=== PATIENT | male | born 1980 | race Caucasian/White ===

== ENCOUNTER 2018-01-15 13:09 | Emergency (ER) | payer MEDICAID ==
[2018-01-15 13:17] VITALS: BP 122/81
[2018-01-15] MEDS ORDERED: IPRATROPIUM/ALBUTEROL 0.5-2.5 MG/3 ML AMPUL NEB ONE ×2 (13:32→13:40)
[2018-01-15] MEDS ORDERED: IBUPROFEN 800 MG TABLET PO ONE (13:32)
[2018-01-15] MEDS ORDERED: PREDNISONE 20 MG TABLET PO ONE (13:32)
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
[2018-01-15] MEDS ORDERED: IBUPROFEN 800 MG TABLET ONE (13:40)
[2018-01-15] MEDS ORDERED: PREDNISONE 20 MG TABLET ONE (13:40)
[2018-01-15] MEDS ORDERED: ALBUTEROL SULFATE 0.083% NEB 2.5 MG/3 ML AMPUL NEB ONE (14:28)
--- NOTE | 2018-01-15 14:40 | RADIOLOGY REPORT (SQ) ---
EXAM DESCRIPTION: FOOT BILATERAL 3 VIEWS COMPLETED DATE/TIME: 01/15/2018 2:17 pm REASON FOR STUDY: bilat foot pain, after jumping up/down COMPARISON: None. NUMBER OF VIEWS: Six views. TECHNIQUE: AP, lateral and oblique radiographic images acquired of the right and left foot. LIMITATIONS: None. FINDINGS: MINERALIZATION: Normal. BONES: No acute fracture or dislocation. No worrisome bone lesions. JOINTS: No effusions. SOFT TISSUES: No soft tissue swelling. No foreign body. OTHER: No other significant finding. IMPRESSION: NEGATIVE STUDY OF THE RIGHT AND LEFT FEET. NO RADIOGRAPHIC EVIDENCE OF ACUTE INJURY. TECHNICAL DOCUMENTATION: JOB ID: [id number] [employer]- All Rights Reserved Reading location - IP/workstation name: [email or web address]
--- NOTE | 2018-01-15 14:41 | RADIOLOGY REPORT (SQ) ---
EXAM DESCRIPTION: CHEST 2 VIEWS COMPLETED DATE/TIME: 01/15/2018 2:17 pm REASON FOR STUDY: cough COMPARISON: None. EXAM PARAMETERS: NUMBER OF VIEWS: two views TECHNIQUE: Digital Frontal and Lateral radiographic views of the chest acquired. RADIATION DOSE: NA LIMITATIONS: none FINDINGS: LUNGS AND PLEURA: No opacities, masses or pneumothorax. No pleural effusion. MEDIASTINUM AND HILAR STRUCTURES: No masses or contour abnormalities. HEART AND VASCULAR STRUCTURES: Heart normal size. No evidence for failure. BONES: No acute findings. HARDWARE: None in the chest. OTHER: No other significant finding. IMPRESSION: NO ACUTE RADIOGRAPHIC FINDING IN THE CHEST. TECHNICAL DOCUMENTATION: JOB ID: [id number] [employer]- All Rights Reserved Reading location - IP/workstation name: [email or web address]
== END 2018-01-15 15:02 | disposition home or self-care (01) ==
LOC: ER 13:09
DX: J40 Bronchitis, not specified as acute or chronic (principal); R06.2 Wheezing; R05 Cough; S93.609A Unspecified sprain of unspecified foot, initial encounter; M79.671 Pain in right foot; M79.672 Pain in left foot; X58.XXXA Exposure to other specified factors, initial encounter; F17.200 Nicotine dependence, unspecified, uncomplicated
CPT/HCPCS: 94640 ×2; 99283; 71046; 73630; J3490; J7512; J7620

== ENCOUNTER 2018-02-28 23:53 | Emergency (ER) | payer MEDICAID ==
[2018-03-01 00:13] VITALS: BP 123/66
[2018-03-01] MEDS ORDERED: AMOXICILLIN TR/POT CLAVULANATE 500-125 MG TAB PO ONE (00:32)
--- NOTE | 2018-03-01 00:32 | ER Document Report ---
ED General - General Chief Complaint: Nasal Congestion Stated Complaint: CONGESTION Time Seen by Provider: 03/01/18 00:23 Notes: Patient is a pleasant 37-year-old male who presents with complaint of some nasal congestion and then noticing some purulent type drainage coming from his right nare. No cough. Subjective fevers at home. No vomiting. No difficulty swallowing or breathing. No other complaints at this time. He is a smoker. TRAVEL OUTSIDE OF THE [place] IN LAST 30 DAYS: No - Related Data Allergies/Adverse Reactions: hydrocodone Adverse Reaction (Intermediate, Verified 01/15/18 13:10) Past Medical History - Social History Smoking Status: Current Every Day Smoker Chew tobacco use (# tins/day): No Frequency of alcohol use: Rare Drug Abuse: None Family History: Reviewed & Not Pertinent Patient has suicidal ideation: No Patient has homicidal ideation: No Pulmonary Medical History: Reports: Hx Bronchitis Renal/ Medical History: Denies: Hx Peritoneal Dialysis Traumatic Medical History: Reports: Hx Fractures Past Surgical History: Reports: Hx Oral Surgery - Immunizations Hx Diphtheria, Pertussis, Tetanus Vaccination: Yes - 2009 Review of Systems - Review of Systems Notes: My Normal Review Basic REVIEW OF SYSTEMS: CONSTITUTIONAL : Denies fever, chills, or sweats. Denies recent illness. EENT: Abnormal drainage from nose. RESPIRATORY: Denies cough, cold, or chest congestion. Denies shortness of breath, difficulty breathing, or wheezing. GASTROINTESTINAL: Denies abdominal pain. Denies nausea, vomiting, or diarrhea. MUSCULOSKELETAL: Denies neck or back pain or joint pain or swelling. SKIN: Denies rash or skin lesions. NEUROLOGICAL: Denies altered mental status or loss of consciousness. ALL OTHER SYSTEMS REVIEWED AND NEGATIVE. Physical Exam - Vital signs Vitals: Temp Pulse Resp BP Pulse Ox 98.9 F 86 16 123/66 98 03/01/18 00:11 03/01/18 00:11 03/01/18 00:11 03/01/18 00:11 03/01/18 00:11 - Notes Notes: General Appearance: Well nourished, alert, cooperative, no acute distress, no obvious discomfort. Vitals: reviewed, See vital signs table. Head: no swelling or tenderness to the head Eyes: PERRL, EOMI, Conjuctiva clear Mouth: No decreasd moisture Throat: No tonsillar inflammation, No airway obstruction, No lymphadenopathy. No abnormal drainage coming from nose at this time. I do not see a intranasal abscess on visual examination. Neck: Supple, no neck tenderness, No swelling. No lymphadenopathy. Lungs: No wheezing, No rales, No rhonci, No accessory muscle use, good air exchange bilaterally. Heart: Normal rate, Regular rythm, No murmur, no rub Neuro: speech clear, oriented x 3, normal affect, responds appropriately to questions. Course - Re-evaluation Re-evalutation: 03/01/18 05:10 Patient describes the drainage was coming from his right nose is almost puslike or purulent. It is possible he had a small intranasal abscess that ruptured and then drained. I do not see one visual examination now. He does mention he has had some congestion with fever. Due to his recent history we will place him on Augmentin to cover for possible staph infection in the sinuses and possible intranasal infection. I encouraged him to follow-up with a physician in 4-5 days for reevaluation. I encourage him return to ER immediately if he has any difficulty breathing, fevers, or worsening of his symptoms. Patient agrees with plan will be discharged home. - Vital Signs Vital signs: Temp Pulse Resp BP Pulse Ox 98.9 F 84 16 123/66 99 03/01/18 00:12 03/01/18 00:12 03/01/18 00:12 03/01/18 00:12 03/01/18 00:12 Discharge - Discharge Clinical Impression: Sinusitis Qualifiers: Sinusitis location: unspecified location Chronicity: acute Recurrence: non- recurrent Qualified Code(s): J01.90 - Acute sinusitis, unspecified Condition: Good Disposition: HOME, SELF-CARE Additional Instructions: Please stop smoking. Please follow up with a doctor or the ER on Friday to make sure your symptoms are improving. Please return to the ER if you have recurrent fevers, vomiting, worsening nasal drainage, or feel unwell. Prescriptions: Amox Tr/Potassium Clavulanate [Augmentin 875-125 Tablet] 1 tab PO BID 10 Days tablet Referrals: OLEG HANCOCK DO [Primary Care Provider] - 03/02/18
== END 2018-03-01 00:47 | disposition home or self-care (01) ==
LOC: ER 23:53
DX: J01.90 Acute sinusitis, unspecified (principal); R09.81 Nasal congestion; R50.9 Fever, unspecified; F17.200 Nicotine dependence, unspecified, uncomplicated
CPT/HCPCS: 99283; J3490

== ENCOUNTER → 2018-04-27 | Outpatient (CLI) | payer MEDICAID ==
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
--- NOTE | 2018-04-27 13:15 | RADIOLOGY REPORT (SQ) ---
EXAM DESCRIPTION: LUMBAR SPINE COMPLETE COMPLETED DATE/TIME: 04/27/2018 1:03 pm REASON FOR STUDY: BILATERAL KNEE PAIN,LUMBAGO WITH SCIATICA, RIGHT SIDE M25.562 PAIN IN LEFT KNEE M 54.41 LUMBAGO WITH SCIATICA, RIGHT SIDE M25.561 PAIN IN RIGHT KNEE COMPARISON: None. NUMBER OF VIEWS: Five views including obliques. TECHNIQUE: AP, lateral, oblique, and sacral radiographic images acquired of the lumbar spine. LIMITATIONS: None. FINDINGS: MINERALIZATION: Normal. SEGMENTATION: Normal. No transitional anatomy. ALIGNMENT: Normal. VERTEBRAE: Maintained height. No fracture or worrisome bone lesion. DISCS: Preserved height. No significant osteophytes or end plate irregularity. POSTERIOR ELEMENTS: Spina bifida occulta S1. HARDWARE: None in the spine. PARASPINAL SOFT TISSUES: Normal. PELVIS: Intact as visualized. No fractures or worrisome bone lesions. SI joints intact. OTHER: No other significant finding. IMPRESSION: NORMAL 5 VIEW LUMBAR SPINE. TECHNICAL DOCUMENTATION: JOB ID: [id number] [employer] All Rights Reserved Reading location - IP/workstation name: [email or web address]
== END ==
LOC: OD 12:14
PROVIDERS: ATTEND Family Medicine
DX: M25.561 Pain in right knee (principal); M25.562 Pain in left knee; M54.41 Lumbago with sciatica, right side
CPT/HCPCS: 72110

== ENCOUNTER 2018-10-21 21:17 | Emergency (ER) | payer MEDICAID ==
[2018-10-21] MEDS ORDERED: DICYCLOMINE HCL INJ 20 MG/2 ML AMPULE IM ONE (23:00)
[2018-10-21] MEDS ORDERED: METOCLOPRAMIDE HCL INJ/PF 10 MG/2 ML SDV IV ONE (23:00)
--- NOTE | 2018-10-21 23:01 | ER Document Report ---
ED Medical Screen (RME) - General Chief Complaint: Vomiting Stated Complaint: VOMITING Time Seen by Provider: 10/21/18 22:58 Primary Care Provider: OLEG HANCOCK DO [Primary Care Provider] - Follow up as needed Mode of Arrival: Ambulatory Information source: Patient Notes: 38-year-old male coming in today with intractable vomiting and upper abdominal pain that radiates to his back. No fevers or chills. Also having some diarrhea. Patient is a regular marijuana user. Denies drug use. I have treated and performed a rapid initial assessment of this patient. A comprehensive ED assessment and evaluation of the patient, analysis of test results and completion of medical decision making process will be conducted by additional ED providers. PHYSICAL EXAMINATION: GENERAL: Well-appearing, well-nourished and in no acute distress. A&Ox4. Answers questions appropriately. LUNGS: Breath sounds clear to auscultation bilaterally and equal. No wheezes rales or rhonchi. HEART: Regular rate and rhythm without murmurs, rubs, gallops. ABDOMEN: Soft, nondistended abdomen. No guarding, no rebound. Normal bowel sounds present. No CVA tenderness bilaterally. + mild epigastric tenderness (cannot elicit thorough abd exam w/o table, however). Extremities: No cyanosis, clubbing, or edema b/l. NEUROLOGICAL: Normal speech, normal gait. PSYCH: Normal mood, normal affect. TRAVEL OUTSIDE OF THE [place] IN LAST 30 DAYS: No - Related Data Allergies/Adverse Reactions: hydrocodone Adverse Reaction (Intermediate, Verified 01/15/18 13:10) Past Medical History Pulmonary Medical History: Reports: Hx Bronchitis Renal/ Medical History: Denies: Hx Peritoneal Dialysis Traumatic Medical History: Reports: Hx Fractures Past Surgical History: Reports: Hx Oral Surgery - Immunizations Hx Diphtheria, Pertussis, Tetanus Vaccination: Yes - 2009 Physical Exam - Vital signs Vitals: Temp Pulse Resp BP Pulse Ox 97.5 F 98 24 H 118/76 100 10/21/18 21:36 10/21/18 21:36 10/21/18 21:36 10/21/18 21:36 10/21/18 21:36 Course - Vital Signs Vital signs: Temp Pulse Resp BP Pulse Ox 97.5 F 98 24 H 118/76 100 10/21/18 21:36 10/21/18 21:36 10/21/18 21:36 10/21/18 21:36 10/21/18 21:36 Doctor's Discharge - Discharge Referrals: OLEG HANCOCK DO [Primary Care Provider] - Follow up as needed
[2018-10-21] MEDS: NORMAL SALINE 1000 ML 1,000 ML IV PRN (23:12)
[2018-10-21 23:39] LABS: HEMATOCRIT 48.7 % (37.9-51.0); HEMOGLOBIN 16.5 g/dL (13.5-17.0); MEAN CORPUSCULAR HEMOGLOBIN 30.6 pg (27.0-33.4); MEAN CORPUSCULAR HGB CONC 33.9 g/dL (32.0-36.0); MEAN CORPUSCULAR VOLUME 90 fl (80-97); PLATELET COUNT 163 10^3/uL (150-450); RED BLOOD COUNT 5.39 10^6/uL (4.35-5.55); RED CELL DISTRIBUTION WIDTH 14.2 % (11.5-14.0); WHITE BLOOD COUNT 14.6 10^3/uL (4.0-10.5)
[2018-10-21 23:51] LABS: ALANINE AMINOTRANSFERASE 21 U/L (21-72); ALBUMIN 5.1 g/dL (3.5-5.0); ALKALINE PHOSPHATASE 82 U/L (38-126); ANION GAP 17 (5-19); ASPARTATE AMINO TRANSFERASE 28 U/L (17-59); BILIRUBIN,DIRECT 0.2 mg/dL (0.0-0.4); BLOOD UREA NITROGEN 24 mg/dL (7-20); CALCIUM 10.7 mg/dL (8.4-10.2); CARBON DIOXIDE 20 mmol/L (22-30); CHLORIDE 103 mmol/L (98-107); GLUCOSE 131 mg/dL (75-110); LIPASE 42.1 U/L (23-300); POTASSIUM 4.9 mmol/L (3.6-5.0); SODIUM 140.4 mmol/L (137-145); TOTAL PROTEIN 8.7 g/dL (6.3-8.2)
[2018-10-22] LABS: ABSOLUTE LYMPHOCYTES# (MANUAL) 0.4 10^3/uL (0.5-4.7); ABSOLUTE MONOCYTES # (MANUAL) 0.7 10^3/uL (0.1-1.4); ABSOLUTE NEUTROPHILS# (MANUAL) 13.4 10^3/uL (1.7-8.2); BAND NEUTROPHILS % (MANUAL) 4 % (3-5); BASOPHILS % (MANUAL) 0 % (0-2); EOSINOPHILS % (MANUAL) 0 % (0-6); LYMPHOCYTES % (MANUAL) 3 % (13-45); MONOCYTES % (MANUAL) 5 % (3-13); PLATELET COMMENT ADEQUATE; RBC MORPHOLOGY COMMENT NORMO-CYTIC/CHROMIC; SEGMENTED NEUTROPHILS % (MAN) 88 % (42-78); TOTAL CELLS COUNTED 100
--- NOTE | 2018-10-22 00:10 | RADIOLOGY REPORT (SQ) ---
EXAM DESCRIPTION: RadLex: US ABDOMEN LIMITED CLINICAL HISTORY: 38 years Male; epig pain vomiting ruq study please TECHNIQUE: Right upper quadrant ultrasound was performed. COMPARISON: None. FINDINGS: Pancreas: Visualized portions are unremarkable. Liver: 12.6 cm long Aorta and IVC are unremarkable. Portal venous flow is hepatopedal, normal. Gallbladder: normal with no gallstones or sonographic evidence for acute cholecystitis. No pericholecystic fluid. No sonographic Britton's sign. Common bile duct: 2 mm. Right kidney: 9.7 cm long. No hydronephrosis. IMPRESSION: 1. Normal right upper quadrant ultrasound.
[2018-10-22] MEDS: NORMAL SALINE 1000 ML 1,000 ML IV PRN (01:12)
[2018-10-22 01:41] VITALS: BP 116/58
[2018-10-22 01:51] LABS: APPEARANCE,URINE CLEAR; BILIRUBIN,URINE NEGATIVE (NEGATIVE); COLOR,URINE YELLOW; GLUCOSE, URINE NEGATIVE (NEGATIVE); KETONES,URINE 20 mg/dL (NEGATIVE); LEUKOCYTE ESTERASE,URINE NEGATIVE (NEGATIVE); NITRITE,URINE NEGATIVE (NEGATIVE); PROTEIN,URINE NEGATIVE (NEGATIVE); URINE SPECIFIC GRAVITY 1.026; UROBILINOGEN,URINE NEGATIVE mg/dL (<2.0)
[2018-10-22] MEDS ORDERED: ONDANSETRON ODT 4 MG TAB (6 TAB/ER DISP) PO PRN (03:02)
--- NOTE | 2018-10-22 03:02 | ER Document Report ---
ED General - General Chief Complaint: Vomiting Stated Complaint: VOMITING Time Seen by Provider: 10/21/18 22:58 Primary Care Provider: OLEG HANCOCK DO [Primary Care Provider] - Follow up as needed Mode of Arrival: Ambulatory Notes: 38-year-old healthy male presents to the emergency department for intractable vomiting, upper abdominal pain that radiates to his back, and diarrhea since 10 AM this morning. He denies any fevers or chills. Denies any sick contacts. Denies that he has had any new restaurants or any diet changes. Patient had associated nausea. Patient is a regular marijuana user but has never had any history of cyclical vomiting. Denies any dizziness, lightheadedness, weakness, dysphagia. No other complaints TRAVEL OUTSIDE OF THE [place] IN LAST 30 DAYS: No - Related Data Allergies/Adverse Reactions: hydrocodone Adverse Reaction (Intermediate, Verified 01/15/18 13:10) Past Medical History - General Information source: Patient - Social History Smoking Status: Current Every Day Smoker Family History: Reviewed & Not Pertinent Patient has suicidal ideation: No Patient has homicidal ideation: No Pulmonary Medical History: Reports: Hx Bronchitis Renal/ Medical History: Denies: Hx Peritoneal Dialysis Traumatic Medical History: Reports: Hx Fractures Past Surgical History: Reports: Hx Oral Surgery - Immunizations Hx Diphtheria, Pertussis, Tetanus Vaccination: Yes - 2009 Review of Systems - Review of Systems Constitutional: See HPI EENT: No symptoms reported Cardiovascular: No symptoms reported Respiratory: No symptoms reported Gastrointestinal: See HPI Genitourinary: No symptoms reported Male Genitourinary: No symptoms reported Musculoskeletal: No symptoms reported Skin: No symptoms reported Hematologic/Lymphatic: No symptoms reported Neurological/Psychological: See HPI Physical Exam - Vital signs Vitals: Temp Pulse Resp BP Pulse Ox 97.5 F 98 24 H 118/76 100 10/21/18 21:36 10/21/18 21:36 10/21/18 21:36 10/21/18 21:36 10/21/18 21:36 - Notes Notes: PHYSICAL EXAMINATION: Reviewed vital signs and charting by RN GENERAL: Well-appearing, well-nourished and in no acute distress. LUNGS: Breath sounds present, equal, and clear to auscultation bilaterally. No wheezes, rales, or rhonchi. HEART: Regular rate and rhythm without murmurs, rubs, or gallops. 2+ peripheral pulses. Normal capillary refill. ABDOMEN: Soft, nontender, nondistended. Hyperactive bowel sounds. No guarding, no rebound. No masses appreciated. EXTREMITIES: Normal range of motion, no pitting or edema. No cyanosis. NEUROLOGICAL: No focal neurological deficits. Moves all extremities spontaneously and on command. PSYCH: Normal mood, normal affect. No hallucinations. SKIN: Warm, dry, normal turgor, no rashes or lesions noted. Course - Re-evaluation Re-evalutation: 10/22/18 03:01 Overall well-appearing. Patient states he is feeling much better and the frequency of his diarrhea has tapered. Patient has not had any episodes of vomiting after receiving Zofran IV patient received normal saline 2 L. Vital signs are within normal limits and he is not tachycardic and mucous membranes are moist. Patient is stable for discharge. I will send him home with a Zofran rapid dispense pack - Vital Signs Vital signs: Temp Pulse Resp BP Pulse Ox 99.0 F 72 17 116/58 L 100 10/22/18 01:37 10/22/18 01:37 10/22/18 01:37 10/22/18 01:37 10/22/18 01:37 - Laboratory Result Diagrams: 10/21/18 23:06 10/21/18 23:06 Laboratory results interpreted by me: 10/21/18 10/21/18 10/22/18 23:06 23:06 01:28 WBC 14.6 H RDW 14.2 H Seg Neuts % (Manual) 88 H Lymphocytes % (Manual) 3 L Abs Neuts (Manual) 13.4 H Abs Lymphs (Manual) 0.4 L Carbon Dioxide 20 L BUN 24 H Glucose 131 H Calcium 10.7 H Total Protein 8.7 H Albumin 5.1 H Urine Ketones 20 H Discharge - Discharge Clinical Impression: Vomiting and diarrhea Condition: Good Disposition: HOME, SELF-CARE Additional Instructions: You have been seen in the Emergency Department (ED) today for nausea and vomiting. Your work up today has not shown a clear cause for your symptoms. You have been prescribed Zofran; please use as prescribed as needed for your nausea. Follow up with your doctor as soon as possible regarding today's emergent visit and your symptoms of nausea. Return to the Emergency Department (ED) if you develop abdominal pain, bloody vomiting, bloody diarrhea, if you are unable to tolerate fluids due to vomiting, or if you develop other symptoms that concern you. Referrals: OLEG HANCOCK, DO [Primary Care Provider] - Follow up as needed
== END 2018-10-22 03:18 | disposition home or self-care (01) ==
LOC: ER 21:17
DX: R11.2 Nausea with vomiting, unspecified (principal); R19.7 Diarrhea, unspecified; R10.10 Upper abdominal pain, unspecified; F17.200 Nicotine dependence, unspecified, uncomplicated
CPT/HCPCS: 99284; 96372; 96361; 96374; 36415; 83690; 85025; 80053; 81001; 76705; J0500; J2765; J7030 ×2

== ENCOUNTER 2019-11-26 22:38 | Emergency (ER) | payer MEDICAID ==
--- NOTE | 2019-11-27 00:46 | ER Document Report ---
ED Medical Screen (RME) - General Chief Complaint: Foot Pain Stated Complaint: LEFT FOOT PAIN Time Seen by Provider: 11/27/19 00:43 Primary Care Provider: OLEG HANCOCK DO [Primary Care Provider] - Follow up as needed Notes: HPI: 39-year-old male presenting with dorsal left foot pain for 3 weeks. Worse in the mornings when he puts the foot on the ground eases up slightly during the day but always some level of discomfort. No trauma no redness no swelling denies history of diabetes PHYSICAL EXAMINATION: No significant bruising or soft tissue swelling is noted to the left foot. There is no tenderness on palpation of the plantar aspect of the foot but there is mild tenderness across the distal dorsal aspect of the left foot. Dorsalis pedis and posterior tibial pulses are present in the left foot and ankle. Sensation is intact in the toes with capillary refill less than 3 seconds I have greeted and performed a rapid initial assessment of this patient. A comprehensive ED assessment and evaluation of the patient, analysis of test results and completion of medical decision making process will be conducted by an additional ED providers. TRAVEL OUTSIDE OF THE [place] IN LAST 30 DAYS: No - Related Data Allergies/Adverse Reactions: hydrocodone Adverse Reaction (Intermediate, Verified 01/15/18 13:10) Past Medical History Pulmonary Medical History: Reports: Hx Bronchitis Renal/ Medical History: Denies: Hx Peritoneal Dialysis Traumatic Medical History: Reports: Hx Fractures Past Surgical History: Reports: Hx Oral Surgery - Immunizations Hx Diphtheria, Pertussis, Tetanus Vaccination: Yes - 2009 Physical Exam - Vital signs Vitals: Temp Pulse Resp BP Pulse Ox 99.0 F 80 16 124/69 98 11/26/19 23:14 11/26/19 23:14 11/26/19 23:14 11/26/19 23:14 11/26/19 23:14 Course - Vital Signs Vital signs: Temp Pulse Resp BP Pulse Ox 99.0 F 80 16 124/69 98 11/26/19 23:14 11/26/19 23:14 11/26/19 23:14 11/26/19 23:14 11/26/19 23:14 Doctor's Discharge - Discharge Referrals: OLEG HANCOCK DO [Primary Care Provider] - Follow up as needed
--- NOTE | 2019-11-27 01:19 | RADIOLOGY REPORT (SQ) ---
CLINICAL INDICATION: pain. . TECHNIQUE: 3 view(s) were obtained of the left foot. COMPARISON: None. FINDINGS: No acute displaced fracture is identified of the foot. Alignment appears anatomic. Joint spaces are within normal limits for age. Surrounding soft tissues are unremarkable. IMPRESSION: No evidence of acute displaced fracture of the foot.
[2019-11-27] MEDS ORDERED: OXYCODONE-ACETAMINOPHEN 5-325 MG TABLET PO ONE (06:16)
--- NOTE | 2019-11-27 06:18 | ER Document Report ---
HPI - HPI Time Seen by Provider: 11/27/19 00:43 Pain Level: 0 Notes: 39-year-old male patient presents emergency department with concern for left foot pain. Patient reports over the last month he has had pain and aching to the dorsal surface of his left foot. He denies any direct trauma or injury. Denies any history of gout. He states the pain is worse when he first wakes up and then eases off through the day. He is taken ibuprofen for his pain with minimal relief. - ROS Systems Reviewed and Negative: Yes All other systems reviewed and negative - CONSTITUTIONAL Constitutional: DENIES: Fever, Chills - MUSCULOSKELETAL Musculoskeletal: REPORTS: Extremity pain - DERM Skin Color: Normal Past Medical History - General Information source: Patient - Social History Smoking Status: Current Every Day Smoker Family History: Reviewed & Not Pertinent Patient has homicidal ideation: No Pulmonary Medical History: Reports: Hx Bronchitis Renal/ Medical History: Denies: Hx Peritoneal Dialysis Traumatic Medical History: Reports: Hx Fractures Past Surgical History: Reports: Hx Oral Surgery - Immunizations Hx Diphtheria, Pertussis, Tetanus Vaccination: Yes - 2009 [facility] Provider Document - CONSTITUTIONAL Notes: PHYSICAL EXAMINATION: GENERAL: Well-appearing, well-nourished and in no acute distress. HEAD: Atraumatic, normocephalic. EYES: Pupils equal round extraocular movements intact, conjunctiva are normal. ENT: Nares patent NECK: Normal range of motion LUNGS: No respiratory distress Musculoskeletal: Normal range of motion, no swelling, erythema or ecchymosis noted to left foot. Mildly tender on palpation. Normal range of motion, strong dorsalis pedis pulse, cap refill less than 3 seconds. NEUROLOGICAL: Normal speech, normal gait. PSYCH: Normal mood, normal affect. SKIN: Warm, Dry, normal turgor, no rashes or lesions noted. - INFECTION CONTROL TRAVEL OUTSIDE OF THE [place] IN LAST 30 DAYS: No Course - Re-evaluation Re-evalutation: Foot X-Ray 11/27/19 00:44 IMPRESSION: No evidence of acute displaced fracture of the foot. Patient appears well, nontoxic. X-rays negative. No obvious signs of injury to the area concerned. No swelling no erythema, no edema no ecchymosis. Patient will be put in a postop shoe and will also be provided with crutches. Patient encouraged to follow-up with orthopedics if not improving over the next 1 week. Patient agreeable to this plan. - Vital Signs Vital signs: Temp Pulse Resp BP Pulse Ox 99.0 F 80 16 124/69 98 11/26/19 23:14 11/26/19 23:14 11/26/19 23:14 11/26/19 23:14 11/26/19 23:14 Discharge - Discharge Clinical Impression: Left foot pain Condition: Stable Disposition: HOME, SELF-CARE Additional Instructions: As discussed, your x-ray today was normal. Please try to stay off of the foot as much as possible, use the crutches. Take the Toradol as prescribed. Keep the appointment you have set up with your primary care provider for Friday. If you continue to have pain they may want to do further imaging or refer you to an orthopedic doctor. Prescriptions: Ketorolac Tromethamine [Toradol 10 mg Tablet] 10 mg PO Q6HP PRN #20 tablet PRN Reason: Forms: Return to Work Referrals: OLEG HANCOCK, [Primary Care Provider] - Follow up as needed
[2019-11-27 07:01] VITALS: BP 126/62
== END 2019-11-27 07:00 | disposition home or self-care (01) ==
LOC: ER 22:38
DX: M79.672 Pain in left foot (principal); F17.200 Nicotine dependence, unspecified, uncomplicated
CPT/HCPCS: 99283